=== PATIENT | female | born 1950 | race Caucasian/White ===

== ENCOUNTER 2021-01-10 23:01 | Inpatient (IN) ==
[2021-01-11] MEDS ORDERED: SODIUM CHLORIDE 0.9% 1,000 ML IV PRN ×2 (01:25→02:34)
[2021-01-11 01:54] LABS: INR 1.6; PT Patient Result 16.7 SECS (9.8-11.9)
[2021-01-11 01:55] LABS: Eosinophils # 0.1 10*3/uL (0.0-0.87); Eosinophils % 3.8 % (0.00-10.9); Immature Granulocytes % 0.5 %; Immature Granulocytes Absolute 0.01 #; Lymphocytes # 0.4 10*3/uL (1.4-4.0); Lymphocytes % 20.3 % (21.3-54.2); Mean Corpuscular HGB Conc 32.3 GM/DL (32-36); Mean Corpuscular Volume 93.8 FL (87-102); Neutrophils % 66.4 % (38.7-73.9); Red Blood Count 2.11 MC/CUMM (3.8-5.5); Red Cell Distribution Width 16.6 % (9.3-17.3); White Blood Count 2.1 T/CUMM (4-12)
[2021-01-11 01:59] LABS: Albumin 3.1 G/DL (3.4-5.0); Calcium 8.5 MG/DL (8.5-10.1); Osmolality,Calculated 294.4 MOS/KG (273-304); Potassium 4.1 MMOL/L (3.5-5.1); Total Protein 7.5 G/DL (6.4-8.3)
[2021-01-11 02:01] LABS: Hematocrit 19.8 VOL% (35.7-47.0); Hemoglobin 6.4 GM/DL (12.0-16.0); Platelet Count 31 T/CUMM (130-400)
[2021-01-11] MEDS ORDERED: ALBUTEROL 2.5 MG/3 ML NEB RESP TX PRN (02:28)
[2021-01-11] MEDS ORDERED: ACETAMINOPHEN 325 MG TABLET PO PRN (02:28)
[2021-01-11] MEDS ORDERED: ALBUTEROL/IPRATROPIUM 3 ML NEB RESP TX PRN (02:28)
[2021-01-11] MEDS ORDERED: hydrALAZINE 20 MG/1 ML VIAL IV PRN (02:28)
[2021-01-11] MEDS ORDERED: ONDANSETRON 4 MG/2 ML VIAL IV PRN (02:28)
[2021-01-11] MEDS ORDERED: FUROSEMIDE 40 MG/4 ML VIAL IV ONE (03:10)
[2021-01-11] MEDS: PANTOPRAZOLE 40 MG VIAL IV SCH ×3 (03:32→20:44)
[2021-01-11 04:16] LABS: Folate > 24.0 NG/ML (5.38-24.0); Vitamin B12 513 PG/ML (211-911)
[2021-01-11 04:55] LABS: % Iron Saturation 84.8 % (18-50); Ferritin 389.1 ng/ml (8-252)
[2021-01-11 06:30] LABS: Eosinophils # 0.1 10*3/uL (0.0-0.87); Eosinophils % 2.7 % (0.00-10.9); Hematocrit 18.9 VOL% (35.7-47.0); Immature Granulocytes % 0.5 %; Immature Granulocytes Absolute 0.01 #; Lymphocytes # 0.3 10*3/uL (1.4-4.0); Lymphocytes % 13.6 % (21.3-54.2); Mean Corpuscular HGB Conc 33.3 GM/DL (32-36); Mean Corpuscular Volume 91.3 FL (87-102); Monocytes % 9.1 % (1.7-12.7); Neutrophils % 74.1 % (38.7-73.9); Red Blood Count 2.07 MC/CUMM (3.8-5.5); Red Cell Distribution Width 16.6 % (9.3-17.3); White Blood Count 2.2 T/CUMM (4-12)
[2021-01-11 06:34] LABS: Hemoglobin 6.3 GM/DL (12.0-16.0); Platelet Count 21 T/CUMM (130-400)
[2021-01-11 07:22] LABS: Sedimentation Rate-Westergren 114 MM/HR (0-30)
[2021-01-11 07:43] LABS: Band Neutrophils 5 % (0-10); Eosinophils 3 % (0-10); Lymphocytes 21 % (20-55); Segmented Neutrophils 63 % (50-85)
[2021-01-11 07:44] LABS: Platelet Estimate Decreased
[2021-01-11 07:45] LABS: Anisocytosis 2+; Hypochromasia 2+; Macrocytosis 2+
[2021-01-11 07:46] LABS: Giant Platelets Few; Ovalocytes Few; Schistocytes Few
[2021-01-11 07:47] LABS: Total Cells Counted 100
[2021-01-11 09:05] LABS: Eosinophils # 0.1 10*3/uL (0.0-0.87); Eosinophils % 2.7 % (0.00-10.9); Hematocrit 18.9 VOL% (35.7-47.0); Immature Granulocytes % 0.5 %; Immature Granulocytes Absolute 0.01 #; Lymphocytes # 0.3 10*3/uL (1.4-4.0); Lymphocytes % 13.6 % (21.3-54.2); Mean Corpuscular HGB Conc 33.3 GM/DL (32-36); Mean Corpuscular Volume 91.3 FL (87-102); Monocytes % 9.1 % (1.7-12.7); Neutrophils % 74.1 % (38.7-73.9); Red Blood Count 2.07 MC/CUMM (3.8-5.5); Red Cell Distribution Width 16.6 % (9.3-17.3); White Blood Count 2.2 T/CUMM (4-12)
[2021-01-11 09:06] LABS: Hemoglobin 6.3 GM/DL (12.0-16.0)
[2021-01-11 09:07] LABS: Platelet Count 21 T/CUMM (130-400)
[2021-01-11] MEDS ORDERED: FUROSEMIDE 40 MG/4 ML VIAL ONE (11:27)
[2021-01-11] MEDS: FUROSEMIDE 40 MG/4 ML VIAL IV SCH ×2 (11:30→16:43)
[2021-01-11 12:27] LABS: Amorphous Crystals,Urine Occasional /HPF (Few); Bilirubin,Urine Negative (Negative); Blood, Urine Small mg/dL (Negative); Glucose,Urine (UA) Negative (Negative); Hyaline Casts,Urine 3 /LPF (0-3); Ketones,Urine Negative (Negative); Mucus,Urine Occasional /LPF (Occasional); Nitrite,Urine Negative (Negative); Protein,Urine 100 MG/DL; RBC,Urine 2 /HPF (0-4); Urine Appearance CLEAR (Clear); Urine Color Yellow (Yellow); Urine Urobilinogen < 2.0 EU/DL (0.2-1.0); WBC,Urine 1 /HPF (0-6)
[2021-01-11] MEDS ORDERED: WARFARIN 3 MG TABLET PO ONE (16:37)
[2021-01-11] MEDS ORDERED: MELATONIN 3 MG TABLET PO PRN (18:49)
[2021-01-11] MEDS: PANTOPRAZOLE 40 MG TABLET PO SCH (20:45)
[2021-01-12] MEDS: LEVOTHYROXINE 125 MCG TABLET PO SCH (06:14)
[2021-01-12 06:29] LABS: Basophils % 0.4 % (0.0-0.8); Eosinophils % 0.7 % (0.00-10.9); Hematocrit 26.5 VOL% (35.7-47.0); Hemoglobin 9.1 GM/DL (12.0-16.0); Immature Granulocytes % 0.4 %; Immature Granulocytes Absolute 0.01 #; Lymphocytes # 0.3 10*3/uL (1.4-4.0); Lymphocytes % 10.7 % (21.3-54.2); Mean Corpuscular HGB Conc 34.3 GM/DL (32-36); Mean Corpuscular Volume 88.6 FL (87-102); Monocytes % 6.6 % (1.7-12.7); Neutrophils % 81.2 % (38.7-73.9); Red Blood Count 2.99 MC/CUMM (3.8-5.5); Red Cell Distribution Width 16.2 % (9.3-17.3); White Blood Count 2.7 T/CUMM (4-12)
[2021-01-12 06:32] LABS: Platelet Count 13 T/CUMM (130-400)
[2021-01-12 06:38] LABS: INR 1.4; PT Patient Result 15.1 SECS (9.8-11.9)
[2021-01-12 06:54] LABS: Albumin 3.1 G/DL (3.4-5.0); Bilirubin,Total 1.1 MG/DL (0.2-1.0); Calcium 8.9 MG/DL (8.5-10.1); Osmolality,Calculated 304.1 MOS/KG (273-304); Total Protein 7.7 G/DL (6.4-8.3)
[2021-01-12 07:11] LABS: Eosinophils 2 % (0-10); Lymphocytes 9 % (20-55); Segmented Neutrophils 85 % (50-85); Total Cells Counted 100
[2021-01-12 07:12] LABS: Anisocytosis 1+; Hypochromasia 1+; Macrocytosis 1+; Target Cells Slight
[2021-01-12 07:13] LABS: Platelet Estimate Decreased
[2021-01-12] MEDS ORDERED: FOLIC ACID 0.4 MG TABLET PO SCH (09:00)
[2021-01-12] MEDS: PANTOPRAZOLE 40 MG TABLET PO SCH ×2 (09:09→22:17)
[2021-01-12] MEDS: CHOLECALCIFEROL 1,000 UNIT TABLET PO SCH (09:09)
[2021-01-12] MEDS: allopurinoL 100 MG TABLET PO SCH (09:09)
[2021-01-12] MEDS: methylPREDNISolone SOD SUC 40 MG/1 ML VIAL IV SCH ×2 (09:10→22:17)
[2021-01-12] MEDS: FUROSEMIDE 100 MG/10 ML VIAL IV SCH ×2 (09:19→17:20)
[2021-01-12] MEDS ORDERED: DEXTROSE 5% IV SCH (17:00)
[2021-01-12] MEDS ORDERED: LEUCOVORIN IV SCH (17:00)
[2021-01-12] MEDS: WARFARIN 1 MG TABLET PO SCH (17:58)
[2021-01-12] MEDS: DEXTROSE 5% IV SCH ×2 (17:58→22:17)
[2021-01-12] MEDS: LEUCOVORIN IV SCH ×2 (17:58→22:17)
[2021-01-12] MEDS ORDERED: FOLIC ACID 1 MG TABLET PO SCH (21:00)
[2021-01-12] MEDS ORDERED: FOLIC ACID INJ 1 MG in SYRINGE 1 EACH IV SCH (21:00)
[2021-01-13] MEDS: DEXTROSE 5% IV SCH ×3 (06:22→16:19)
[2021-01-13] MEDS: LEVOTHYROXINE 125 MCG TABLET PO SCH (06:22)
[2021-01-13] MEDS: LEUCOVORIN IV SCH ×3 (06:22→16:19)
[2021-01-13 07:02] LABS: Hemoglobin 7.7 GM/DL (12.0-16.0); Lymphocytes # 0.1 10*3/uL (1.4-4.0); Lymphocytes % 8.3 % (21.3-54.2); Mean Corpuscular HGB Conc 32.1 GM/DL (32-36); Mean Corpuscular Volume 94.1 FL (87-102); Mean Platelet Volume 11.2 FL (9.6-12.0); Monocytes % 2.5 % (1.7-12.7); Neutrophils % 89.2 % (38.7-73.9); Platelet Count 82 T/CUMM (130-400); Red Blood Count 2.55 MC/CUMM (3.8-5.5); Red Cell Distribution Width 15.9 % (9.3-17.3); White Blood Count 1.2 T/CUMM (4-12)
[2021-01-13 07:04] LABS: INR 1.8; PT Patient Result 18.3 SECS (9.8-11.9)
[2021-01-13 07:16] LABS: Albumin 2.9 G/DL (3.4-5.0); Calcium 8.4 MG/DL (8.5-10.1); Osmolality,Calculated 305.2 MOS/KG (273-304); Potassium 3.7 MMOL/L (3.5-5.1); Total Protein 7.1 G/DL (6.4-8.3)
[2021-01-13 07:30] LABS: Hypochromasia 2+; Lymphocytes 8 % (20-55); Microcytosis 1+; Ovalocytes Slight; Platelet Estimate Decreased; Segmented Neutrophils 89 % (50-85); Total Cells Counted 100
[2021-01-13] MEDS ORDERED: FOLIC ACID 1 MG TABLET PO SCH (09:00)
[2021-01-13] MEDS: CHOLECALCIFEROL 1,000 UNIT TABLET PO SCH (09:33)
[2021-01-13] MEDS: PANTOPRAZOLE 40 MG TABLET PO SCH ×2 (09:33→21:30)
[2021-01-13] MEDS: allopurinoL 100 MG TABLET PO SCH (09:33)
[2021-01-13] MEDS: methylPREDNISolone SOD SUC 40 MG/1 ML VIAL IV SCH ×2 (09:34→21:29)
[2021-01-13] MEDS: FUROSEMIDE 100 MG/10 ML VIAL IV SCH (10:13)
[2021-01-13] MEDS: DILTIAZEM CD 120 MG CAPSULE PO SCH (14:27)
[2021-01-13] MEDS ORDERED: FUROSEMIDE 40 MG TABLET PO SCH (16:00)
[2021-01-13] MEDS: WARFARIN 1 MG TABLET PO SCH (17:00)
[2021-01-14] MEDS: LEUCOVORIN IV SCH ×2 (00:39→06:01)
[2021-01-14] MEDS: DEXTROSE 5% IV SCH ×2 (00:39→06:01)
[2021-01-14] MEDS: LEVOTHYROXINE 125 MCG TABLET PO SCH (06:01)
[2021-01-14 06:25] LABS: Hematocrit 23.4 VOL% (35.7-47.0); Hemoglobin 7.4 GM/DL (12.0-16.0); Immature Granulocytes % 0.5 %; Immature Granulocytes Absolute 0.01 #; Lymphocytes # 0.1 10*3/uL (1.4-4.0); Mean Corpuscular HGB Conc 31.6 GM/DL (32-36); Mean Corpuscular Volume 92.9 FL (87-102); Mean Platelet Volume 12.4 FL (9.6-12.0); Neutrophils % 88.5 % (38.7-73.9); Red Blood Count 2.52 MC/CUMM (3.8-5.5); Red Cell Distribution Width 15.4 % (9.3-17.3)
[2021-01-14 06:36] LABS: INR 1.7; PT Patient Result 18.2 SECS (9.8-11.9)
[2021-01-14 06:44] LABS: Calcium 7.7 MG/DL (8.5-10.1); Osmolality,Calculated 313.1 MOS/KG (273-304); Potassium 3.6 MMOL/L (3.5-5.1)
[2021-01-14 06:46] LABS: Platelet Count 36 T/CUMM (130-400)
[2021-01-14 06:48] LABS: Hypochromasia 2+; Microcytosis 1+; Platelet Estimate Decreased
[2021-01-14 08:07] LABS: INR 1.7; PT Patient Result 18.2 SECS (9.8-11.9)
[2021-01-14] MEDS: PANTOPRAZOLE 40 MG TABLET PO SCH (08:46)
[2021-01-14] MEDS: CHOLECALCIFEROL 1,000 UNIT TABLET PO SCH (08:46)
[2021-01-14] MEDS: DILTIAZEM CD 120 MG CAPSULE PO SCH (08:47)
[2021-01-14] MEDS: allopurinoL 100 MG TABLET PO SCH (08:47)
[2021-01-14] MEDS: methylPREDNISolone SOD SUC 40 MG/1 ML VIAL IV SCH (08:48)
[2021-01-14] MEDS ORDERED: SODIUM CHLORIDE 0.9% 1,000 ML IV PRN (08:53)
[2021-01-14] MEDS ORDERED: FUROSEMIDE 40 MG TABLET PO SCH (09:00)
[2021-01-14] MEDS ORDERED: predniSONE 20 MG TABLET PO SCH (09:00)
[2021-01-14 15:16] VITALS: BP 118/56
[2021-01-15 09:30] LABS: Hemoglobin A1 (Alkaline) 97.5 % (96.5-98.5); Hemoglobin A2 (Alkaline) 2.5 % (1.5-3.5)
[2021-01-15 10:40] LABS: Anti SS-A Antibodies < 16 EU/ML
== END 2021-01-14 16:09 | disposition home health service (06) | DRG 545 ==
LOC: SUATTDRO 01-11 00:47 → N.ICU 01-11 00:47 → N.TELEN 01-12 18:18
PROVIDERS: ADMIT Internal Medicine; ATTEND Internal Medicine

== ENCOUNTER 2021-01-18 22:00 | Inpatient (IN) ==
[2021-01-19] MEDS ORDERED: GLUCAGON 1 MG VIAL IM PRN (00:06)
[2021-01-19] MEDS ORDERED: DEXTROSE 50% 25 GM/50 ML VIAL IV PRN (00:06)
[2021-01-19] MEDS ORDERED: MAGNESIUM SULF RIDER 2 GM in PREMIX 1 EACH IV PRN (00:17)
[2021-01-19] MEDS ORDERED: MAGNESIUM SULF RIDER 4 GM in PREMIX 1 EACH IV PRN (00:17)
[2021-01-19] MEDS: ALBUTEROL/IPRATROPIUM 3 ML NEB RESP TX SCH ×4 (00:50→20:02)
[2021-01-19 06:07] LABS: Hematocrit 24.6 VOL% (35.7-47.0); Hemoglobin 8.1 GM/DL (12.0-16.0); Immature Granulocytes % 0.4 %; Immature Granulocytes Absolute 0.01 #; Lymphocytes # 0.4 10*3/uL (1.4-4.0); Lymphocytes % 12.9 % (21.3-54.2); Mean Corpuscular HGB Conc 32.9 GM/DL (32-36); Mean Corpuscular Volume 90.4 FL (87-102); Monocytes % 7.9 % (1.7-12.7); Neutrophils % 78.8 % (38.7-73.9); Red Blood Count 2.72 MC/CUMM (3.8-5.5); Red Cell Distribution Width 15.4 % (9.3-17.3); White Blood Count 2.8 T/CUMM (4-12)
[2021-01-19 06:11] LABS: INR 1.4; PT Patient Result 14.8 SECS (9.8-11.9)
[2021-01-19 06:15] LABS: Platelet Count 13 T/CUMM (130-400)
[2021-01-19 06:26] LABS: Hypochromasia 1+
[2021-01-19 06:27] LABS: Albumin 2.9 G/DL (3.4-5.0); Bilirubin,Total 0.9 MG/DL (0.2-1.0); Calcium 8.7 MG/DL (8.5-10.1); Microcytosis 1+; Osmolality,Calculated 329.8 MOS/KG (273-304); Ovalocytes Slight; Platelet Estimate Decreased; Potassium 4.2 MMOL/L (3.5-5.1); Total Protein 6.6 G/DL (5.0-7.5)
[2021-01-19] MEDS ORDERED: WARFARIN 5 MG TABLET PO ONE (07:22)
[2021-01-19] MEDS ORDERED: SODIUM CHLORIDE 0.9% 1,000 ML IV PRN ×2 (08:58→19:42)
[2021-01-19] MEDS: PANTOPRAZOLE 40 MG TABLET PO SCH (09:17)
[2021-01-19] MEDS: FUROSEMIDE 40 MG/4 ML VIAL IV SCH ×2 (09:17→16:15)
[2021-01-19] MEDS: methylPREDNISolone SOD SUC 40 MG/1 ML VIAL IV SCH ×2 (11:16→18:17)
[2021-01-20] MEDS: ALBUTEROL/IPRATROPIUM 3 ML NEB RESP TX SCH ×5 (00:33→20:04)
[2021-01-20] MEDS: methylPREDNISolone SOD SUC 40 MG/1 ML VIAL IV SCH ×3 (02:49→18:11)
[2021-01-20 05:57] LABS: Hematocrit 28.2 VOL% (35.7-47.0); Lymphocytes # 0.1 10*3/uL (1.4-4.0); Mean Corpuscular HGB Conc 31.9 GM/DL (32-36); Mean Corpuscular Volume 90.1 FL (87-102); Mean Platelet Volume 11.6 FL (9.6-12.0); Monocytes % 0.7 % (1.7-12.7); Neutrophils % 93.3 % (38.7-73.9); Platelet Count 58 T/CUMM (130-400); Red Blood Count 3.13 MC/CUMM (3.8-5.5); Red Cell Distribution Width 16.8 % (9.3-17.3); White Blood Count 1.5 T/CUMM (4-12)
[2021-01-20 06:04] LABS: INR 1.6; PT Patient Result 16.7 SECS (9.8-11.9)
[2021-01-20 06:20] LABS: Albumin 2.9 G/DL (3.4-5.0); Bilirubin,Total 1.1 MG/DL (0.2-1.0); Calcium 8.4 MG/DL (8.5-10.1); Osmolality,Calculated 326.5 MOS/KG (273-304); Potassium 4.1 MMOL/L (3.5-5.1); Total Protein 6.5 G/DL (5.0-7.5)
[2021-01-20 06:33] LABS: Lymphocytes 2 % (20-55); Segmented Neutrophils 98 % (50-85); Total Cells Counted 100
[2021-01-20 06:34] LABS: Hypochromasia 1+; Microcytosis 1+; Ovalocytes Slight
[2021-01-20 06:35] LABS: Platelet Estimate Decreased
[2021-01-20] MEDS ORDERED: WARFARIN 5 MG TABLET PO ONE (07:02)
[2021-01-20] MEDS ORDERED: HEPARIN 5,000 UNIT/1 ML VIAL ONE (07:43)
[2021-01-20] MEDS: carvediloL 6.25 MG TABLET PO SCH ×2 (09:22→22:09)
[2021-01-20] MEDS: FUROSEMIDE 40 MG/4 ML VIAL IV SCH (09:22)
[2021-01-20] MEDS: hydrALAZINE 25 MG TABLET PO SCH ×2 (09:22→22:09)
[2021-01-20] MEDS: PANTOPRAZOLE 40 MG TABLET PO SCH (09:22)
[2021-01-21] MEDS: ALBUTEROL/IPRATROPIUM 3 ML NEB RESP TX SCH ×4 (01:19→19:54)
[2021-01-21] MEDS: methylPREDNISolone SOD SUC 40 MG/1 ML VIAL IV SCH ×2 (02:24→09:34)
[2021-01-21 06:02] LABS: Hematocrit 27.7 VOL% (35.7-47.0); Hemoglobin 8.8 GM/DL (12.0-16.0); Immature Granulocytes % 0.8 %; Immature Granulocytes Absolute 0.02 #; Lymphocytes # 0.1 10*3/uL (1.4-4.0); Lymphocytes % 3.4 % (21.3-54.2); Mean Corpuscular HGB Conc 31.8 GM/DL (32-36); Mean Corpuscular Volume 90.5 FL (87-102); Mean Platelet Volume 12.9 FL (9.6-12.0); Monocytes % 1.7 % (1.7-12.7); Neutrophils % 94.1 % (38.7-73.9); Red Blood Count 3.06 MC/CUMM (3.8-5.5); Red Cell Distribution Width 16.4 % (9.3-17.3)
[2021-01-21 06:10] LABS: Platelet Count 40 T/CUMM (130-400); White Blood Count 2.4 T/CUMM (4-12)
[2021-01-21 06:24] LABS: Hypochromasia 1+; Lymphocytes 4 % (20-55); Microcytosis 1+; Platelet Estimate Decreased; Segmented Neutrophils 91 % (50-85); Total Cells Counted 100
[2021-01-21 09:20] LABS: Calcium 8.5 MG/DL (8.5-10.1); Potassium 3.9 MMOL/L (3.5-5.1)
[2021-01-21] MEDS: hydrALAZINE 25 MG TABLET PO SCH ×2 (09:34→21:46)
[2021-01-21] MEDS: PANTOPRAZOLE 40 MG TABLET PO SCH (09:34)
[2021-01-21] MEDS: carvediloL 6.25 MG TABLET PO SCH ×2 (09:34→21:46)
[2021-01-21] MEDS: FUROSEMIDE 40 MG/4 ML VIAL IV SCH (09:35)
[2021-01-21 10:21] LABS: INR 1.8; PT Patient Result 18.4 SECS (9.8-11.9)
[2021-01-21] MEDS ORDERED: WARFARIN 2 MG TABLET PO ONE (13:18)
[2021-01-21] MEDS: HYDROCORTISONE 25 MG SUPP RECTAL SCH ×2 (14:34→21:46)
[2021-01-21] MEDS: VANCOMYCIN 50 MG/ML 60 ML/BOTTLE PO SCH (19:01)
[2021-01-22] MEDS: VANCOMYCIN 50 MG/ML 60 ML/BOTTLE PO SCH ×4 (00:34→18:22)
[2021-01-22] MEDS: ALBUTEROL/IPRATROPIUM 3 ML NEB RESP TX SCH ×4 (02:25→19:59)
[2021-01-22 06:13] LABS: Hemoglobin 9.1 GM/DL (12.0-16.0); Immature Granulocytes % 0.8 %; Immature Granulocytes Absolute 0.02 #; Lymphocytes # 0.1 10*3/uL (1.4-4.0); Mean Corpuscular HGB Conc 31.4 GM/DL (32-36); Mean Corpuscular Volume 92.4 FL (87-102); Mean Platelet Volume 12.7 FL (9.6-12.0); Monocytes % 6.2 % (1.7-12.7); NRBC # 0.02 10*3/uL; Platelet Count 44 T/CUMM (130-400); Red Blood Count 3.14 MC/CUMM (3.8-5.5); Red Cell Distribution Width 16.3 % (9.3-17.3); White Blood Count 2.6 T/CUMM (4-12)
[2021-01-22 06:24] LABS: INR 1.7; PT Patient Result 17.5 SECS (9.8-11.9)
[2021-01-22 06:33] LABS: Osmolality,Calculated 344.7 MOS/KG (273-304); Potassium 3.9 MMOL/L (3.5-5.1)
[2021-01-22 06:40] LABS: Lymphocytes 5 % (20-55); Segmented Neutrophils 91 % (50-85); Total Cells Counted 100
[2021-01-22 06:41] LABS: Hypochromasia 1+; Microcytosis 1+; Ovalocytes Slight
[2021-01-22 06:42] LABS: Platelet Estimate Decreased
[2021-01-22] MEDS: predniSONE 20 MG TABLET PO SCH (09:41)
[2021-01-22] MEDS: hydrALAZINE 25 MG TABLET PO SCH ×2 (09:41→21:22)
[2021-01-22] MEDS: carvediloL 6.25 MG TABLET PO SCH ×2 (09:41→21:22)
[2021-01-22] MEDS: FUROSEMIDE 40 MG/4 ML VIAL IV SCH (09:41)
[2021-01-22] MEDS: PANTOPRAZOLE 40 MG TABLET PO SCH (09:41)
[2021-01-22] MEDS: HYDROCORTISONE 25 MG SUPP RECTAL SCH ×2 (09:42→21:22)
[2021-01-22] MEDS: ONDANSETRON 4 MG/2 ML VIAL IV PRN (10:18)
[2021-01-22] MEDS ORDERED: ALBUMIN 25% 25 GM in PREMIX 1 EACH IV ONE ×2 (15:07→17:00)
[2021-01-22] MEDS: ZALEPLON 5 MG CAPSULE PO PRN (23:18)
[2021-01-23] MEDS: VANCOMYCIN 50 MG/ML 60 ML/BOTTLE PO SCH ×4 (00:30→18:18)
[2021-01-23] MEDS: ALBUTEROL/IPRATROPIUM 3 ML NEB RESP TX SCH ×4 (01:00→19:42)
[2021-01-23 06:51] LABS: Hematocrit 28.2 VOL% (35.7-47.0); Hemoglobin 8.9 GM/DL (12.0-16.0); Immature Granulocytes Absolute 0.03 #; Lymphocytes # 0.2 10*3/uL (1.4-4.0); Lymphocytes % 6.5 % (21.3-54.2); Mean Corpuscular HGB Conc 31.6 GM/DL (32-36); Mean Corpuscular Volume 92.5 FL (87-102); Monocytes % 5.8 % (1.7-12.7); Neutrophils % 86.7 % (38.7-73.9); Red Blood Count 3.05 MC/CUMM (3.8-5.5); Red Cell Distribution Width 16.2 % (9.3-17.3); White Blood Count 2.9 T/CUMM (4-12)
[2021-01-23 06:53] LABS: Platelet Count 23 T/CUMM (130-400)
[2021-01-23 07:05] LABS: INR 1.6; PT Patient Result 17.2 SECS (9.8-11.9)
[2021-01-23 07:17] LABS: Calcium 7.7 MG/DL (8.5-10.1); Osmolality,Calculated 345.1 MOS/KG (273-304); Potassium 4.4 MMOL/L (3.5-5.1)
[2021-01-23] MEDS ORDERED: WARFARIN 5 MG TABLET PO ONE (07:42)
[2021-01-23] MEDS: hydrALAZINE 25 MG TABLET PO SCH ×2 (08:26→21:32)
[2021-01-23] MEDS: predniSONE 20 MG TABLET PO SCH (08:26)
[2021-01-23] MEDS: HYDROCORTISONE 25 MG SUPP RECTAL SCH ×2 (08:26→21:32)
[2021-01-23] MEDS: carvediloL 6.25 MG TABLET PO SCH ×2 (08:26→21:32)
[2021-01-23] MEDS: PANTOPRAZOLE 40 MG TABLET PO SCH (08:26)
[2021-01-23] MEDS: SODIUM CHLORIDE 0.9% 1,000 ML IV SCH (12:00)
[2021-01-23] MEDS: ALUMINUM/MAGNES/SIMETH MAX STR 30 ML UDCUP PO PRN ×2 (12:00→18:18)
[2021-01-23] MEDS: methylPREDNISolone SOD SUC 40 MG/1 ML VIAL IV SCH ×2 (14:52→21:35)
[2021-01-24] MEDS: VANCOMYCIN 50 MG/ML 60 ML/BOTTLE PO SCH ×4 (00:20→18:10)
[2021-01-24] MEDS: SODIUM CHLORIDE 0.9% 1,000 ML IV SCH ×3 (01:06→21:59)
[2021-01-24] MEDS: ALBUTEROL/IPRATROPIUM 3 ML NEB RESP TX SCH ×4 (02:05→19:37)
[2021-01-24 05:40] LABS: Hematocrit 27.5 VOL% (35.7-47.0); Hemoglobin 8.5 GM/DL (12.0-16.0); Immature Granulocytes % 0.6 %; Immature Granulocytes Absolute 0.02 #; Lymphocytes # 0.1 10*3/uL (1.4-4.0); Lymphocytes % 1.7 % (21.3-54.2); Mean Corpuscular HGB Conc 30.9 GM/DL (32-36); Mean Corpuscular Volume 93.5 FL (87-102); Monocytes % 1.4 % (1.7-12.7); NRBC # 0.02 10*3/uL; Neutrophils % 96.3 % (38.7-73.9); Platelet Count 73 T/CUMM (130-400); Red Blood Count 2.94 MC/CUMM (3.8-5.5); Red Cell Distribution Width 16.1 % (9.3-17.3); White Blood Count 3.5 T/CUMM (4-12)
[2021-01-24] MEDS: methylPREDNISolone SOD SUC 40 MG/1 ML VIAL IV SCH ×3 (05:43→21:59)
[2021-01-24 05:47] LABS: INR 1.6; PT Patient Result 16.3 SECS (9.8-11.9)
[2021-01-24 05:59] LABS: Calcium 7.3 MG/DL (8.5-10.1); Osmolality,Calculated 344.1 MOS/KG (273-304)
[2021-01-24 06:32] LABS: Band Neutrophils 2 % (0-10); Nucleated Red Blood Cells 1 (0-5); Segmented Neutrophils 96 % (50-85); Total Cells Counted 100
[2021-01-24 06:33] LABS: Anisocytosis 2+; Burr Cells Few; Helmet Cells Few; Macrocytosis 1+; Platelet Estimate Decreased
[2021-01-24] MEDS: PANTOPRAZOLE 40 MG TABLET PO SCH (08:19)
[2021-01-24] MEDS ORDERED: LACTULOSE 20 GM/30 ML UDCUP PO PRN (08:35)
[2021-01-24] MEDS: carvediloL 6.25 MG TABLET PO SCH ×2 (08:39→21:59)
[2021-01-24] MEDS: hydrALAZINE 25 MG TABLET PO SCH ×2 (08:39→21:59)
[2021-01-24] MEDS ORDERED: WARFARIN 2 MG TABLET PO ONE (09:13)
[2021-01-24] MEDS: HYDROCORTISONE 25 MG SUPP RECTAL SCH ×2 (10:00→21:59)
[2021-01-25] MEDS: ALBUTEROL/IPRATROPIUM 3 ML NEB RESP TX SCH ×4 (00:23→19:23)
[2021-01-25] MEDS: VANCOMYCIN 50 MG/ML 60 ML/BOTTLE PO SCH ×4 (01:07→18:30)
[2021-01-25 05:26] LABS: Hematocrit 26.4 VOL% (35.7-47.0); Hemoglobin 8.5 GM/DL (12.0-16.0); Immature Granulocytes % 0.6 %; Immature Granulocytes Absolute 0.02 #; Lymphocytes # 0.1 10*3/uL (1.4-4.0); Lymphocytes % 1.6 % (21.3-54.2); Mean Corpuscular HGB Conc 32.2 GM/DL (32-36); Mean Corpuscular Volume 91.7 FL (87-102); Mean Platelet Volume 11.6 FL (9.6-12.0); Monocytes % 1.9 % (1.7-12.7); Neutrophils % 95.9 % (38.7-73.9); Platelet Count 50 T/CUMM (130-400); Red Blood Count 2.88 MC/CUMM (3.8-5.5); Red Cell Distribution Width 16.2 % (9.3-17.3); White Blood Count 3.1 T/CUMM (4-12)
[2021-01-25 05:30] LABS: INR 1.6; PT Patient Result 17.2 SECS (9.8-11.9)
[2021-01-25 05:45] LABS: Albumin 2.7 G/DL (3.4-5.0); Bilirubin,Total 1.3 MG/DL (0.2-1.0); Calcium 7.6 MG/DL (8.5-10.1); Osmolality,Calculated 348.1 MOS/KG (273-304); Potassium 5.1 MMOL/L (3.5-5.1); Total Protein 5.6 G/DL (5.0-7.5)
[2021-01-25] MEDS: methylPREDNISolone SOD SUC 40 MG/1 ML VIAL IV SCH ×3 (06:33→21:47)
[2021-01-25 07:14] LABS: Anisocytosis 2+; Band Neutrophils 2 % (0-10); Burr Cells Few; Lymphocytes 2 % (20-55); Platelet Estimate Decreased; Segmented Neutrophils 94 % (50-85); Total Cells Counted 100
[2021-01-25 07:15] LABS: Ovalocytes Few
[2021-01-25] MEDS: SODIUM CHLORIDE 0.9% 1,000 ML IV SCH (08:05)
[2021-01-25] MEDS: PANTOPRAZOLE 40 MG TABLET PO SCH (08:19)
[2021-01-25] MEDS: carvediloL 6.25 MG TABLET PO SCH ×2 (08:19→21:45)
[2021-01-25] MEDS: hydrALAZINE 25 MG TABLET PO SCH ×2 (08:19→21:45)
[2021-01-25] MEDS: HYDROCORTISONE 25 MG SUPP RECTAL SCH ×2 (08:19→21:45)
[2021-01-25] MEDS: SODIUM CHLORIDE 23.4% CONC INJ 38.5 MEQ, SODIUM BICARB INJ 100 MEQ in STERILE WATER INJ... IV SCH (11:56)
[2021-01-25] MEDS ORDERED: WARFARIN 2 MG TABLET PO ONE (18:00)
[2021-01-25] MEDS: ZALEPLON 5 MG CAPSULE PO PRN (23:05)
[2021-01-26] MEDS: VANCOMYCIN 50 MG/ML 60 ML/BOTTLE PO SCH ×4 (00:20→18:56)
[2021-01-26] MEDS: ALBUTEROL/IPRATROPIUM 3 ML NEB RESP TX SCH ×4 (01:12→19:12)
[2021-01-26] MEDS: SODIUM CHLORIDE 23.4% CONC INJ 38.5 MEQ, SODIUM BICARB INJ 100 MEQ in STERILE WATER INJ... IV SCH ×2 (03:08→17:29)
[2021-01-26 04:44] LABS: Hematocrit 25.8 VOL% (35.7-47.0); Hemoglobin 8.2 GM/DL (12.0-16.0); Immature Granulocytes % 1.1 %; Immature Granulocytes Absolute 0.04 #; Lymphocytes # 0.1 10*3/uL (1.4-4.0); Lymphocytes % 1.4 % (21.3-54.2); Mean Corpuscular HGB Conc 31.8 GM/DL (32-36); Mean Corpuscular Volume 91.8 FL (87-102); Mean Platelet Volume 11.8 FL (9.6-12.0); Monocytes % 1.4 % (1.7-12.7); Neutrophils % 96.1 % (38.7-73.9); Platelet Count 40 T/CUMM (130-400); Red Blood Count 2.81 MC/CUMM (3.8-5.5); Red Cell Distribution Width 16.1 % (9.3-17.3); White Blood Count 3.6 T/CUMM (4-12)
[2021-01-26 05:15] LABS: Hypochromasia 1+; Lymphocytes 3 % (20-55); Microcytosis 1+; Segmented Neutrophils 96 % (50-85); Total Cells Counted 100
[2021-01-26 05:16] LABS: Ovalocytes Slight; Platelet Estimate Decreased
[2021-01-26] MEDS: methylPREDNISolone SOD SUC 40 MG/1 ML VIAL IV SCH ×3 (05:34→21:43)
[2021-01-26 05:38] LABS: INR 1.6
[2021-01-26 05:58] LABS: Albumin 2.8 G/DL (3.4-5.0); Bilirubin,Total 0.9 MG/DL (0.2-1.0); Calcium 7.3 MG/DL (8.5-10.1); Osmolality,Calculated 344.2 MOS/KG (273-304); Total Protein 5.3 G/DL (5.0-7.5)
[2021-01-26] MEDS: PANTOPRAZOLE 40 MG TABLET PO SCH (10:36)
[2021-01-26] MEDS: carvediloL 12.5 MG TABLET PO SCH ×2 (10:36→21:43)
[2021-01-26] MEDS: hydrALAZINE 25 MG TABLET PO SCH (10:44)
[2021-01-26] MEDS: carvediloL 6.25 MG TABLET PO SCH (10:45)
[2021-01-26] MEDS ORDERED: HEPARIN DRIP 25,000 UNITS/500 ML PREMIX IV SCH (11:30)
[2021-01-26 11:58] LABS: INR 1.4; PT Patient Result 15.2 SECS (9.8-11.9); Partial Thromboplastin Time 35.8 SECS (23.9-33.8)
[2021-01-26] MEDS: HYDROCORTISONE 25 MG SUPP RECTAL SCH (16:40)
[2021-01-27] MEDS: VANCOMYCIN 50 MG/ML 60 ML/BOTTLE PO SCH ×4 (00:05→18:44)
[2021-01-27] MEDS: ACETAMINOPHEN 325 MG TABLET PO PRN ×2 (00:05→18:44)
[2021-01-27] MEDS: ALBUTEROL/IPRATROPIUM 3 ML NEB RESP TX SCH ×4 (00:34→19:07)
[2021-01-27] MEDS: HYDROCORTISONE 25 MG SUPP RECTAL SCH ×3 (01:00→21:23)
[2021-01-27] MEDS: methylPREDNISolone SOD SUC 40 MG/1 ML VIAL IV SCH ×2 (05:29→14:40)
[2021-01-27 06:22] LABS: Hematocrit 24.2 VOL% (35.7-47.0); Hemoglobin 7.7 GM/DL (12.0-16.0); Immature Granulocytes % 1.1 %; Immature Granulocytes Absolute 0.04 #; Lymphocytes % 1.1 % (21.3-54.2); Mean Corpuscular HGB Conc 31.8 GM/DL (32-36); NRBC # 0.02 10*3/uL; Neutrophils % 93.8 % (38.7-73.9); Red Blood Count 2.66 MC/CUMM (3.8-5.5); White Blood Count 3.5 T/CUMM (4-12)
[2021-01-27 06:28] LABS: Platelet Count 25 T/CUMM (130-400)
[2021-01-27 06:50] LABS: Hypochromasia 1+; Lymphocytes 1 % (20-55); Nucleated Red Blood Cells 1 (0-5); Segmented Neutrophils 95 % (50-85); Total Cells Counted 100
[2021-01-27 06:51] LABS: Albumin 2.5 G/DL (3.4-5.0); Bilirubin,Total 0.8 MG/DL (0.2-1.0); Microcytosis 1+; Ovalocytes Slight; Platelet Estimate Decreased; Potassium 4.7 MMOL/L (3.5-5.1); Total Protein 5.1 G/DL (5.0-7.5)
[2021-01-27] MEDS ORDERED: LEVOTHYROXINE 88 MCG TABLET PO SCH (09:00)
[2021-01-27] MEDS: PANTOPRAZOLE 40 MG TABLET PO SCH (09:34)
[2021-01-27] MEDS: LEVOTHYROXINE 100 MCG TABLET PO SCH (09:34)
[2021-01-27] MEDS: carvediloL 12.5 MG TABLET PO SCH ×2 (09:34→21:23)
[2021-01-27] MEDS: SODIUM CHLORIDE 23.4% CONC INJ 38.5 MEQ, SODIUM BICARB INJ 100 MEQ in STERILE WATER INJ... IV SCH (09:34)
[2021-01-27 09:50] LABS: INR 1.4; PT Patient Result 14.4 SECS (9.8-11.9)
[2021-01-27] MEDS ORDERED: SODIUM CHLORIDE 0.9% 1,000 ML IV PRN (16:14)
[2021-01-27] MEDS ORDERED: NITROGLYCERIN SL 0.4 MG TABLET SL PRN (17:37)
[2021-01-27] MEDS ORDERED: ALUM/MAG/SIMETH/LIDO VISC 1:1 30 ML BOTTLE PO ONE (17:37)
[2021-01-28] MEDS: VANCOMYCIN 50 MG/ML 60 ML/BOTTLE PO SCH ×4 (00:12→17:32)
[2021-01-28] MEDS: ALBUTEROL/IPRATROPIUM 3 ML NEB RESP TX SCH ×4 (01:00→21:19)
[2021-01-28] MEDS ORDERED: CLINDAMYCIN INJ 900 MG in PREMIX 1 EACH IV ONE (05:49)
[2021-01-28] MEDS: ACETAMINOPHEN 325 MG TABLET PO PRN ×2 (05:55→16:51)
[2021-01-28 06:02] LABS: Hematocrit 23.6 VOL% (35.7-47.0); Immature Granulocytes % 1.4 %; Immature Granulocytes Absolute 0.03 #; Mean Corpuscular HGB Conc 33.9 GM/DL (32-36); Mean Corpuscular Volume 87.4 FL (87-102); Monocytes % 1.9 % (1.7-12.7); NRBC # 0.02 10*3/uL; Neutrophils % 96.7 % (38.7-73.9); Red Cell Distribution Width 16.2 % (9.3-17.3); White Blood Count 2.1 T/CUMM (4-12)
[2021-01-28 06:03] LABS: INR 1.4; PT Patient Result 15.1 SECS (9.8-11.9); Platelet Count 15 T/CUMM (130-400)
[2021-01-28] MEDS ORDERED: HEPARIN 5,000 UNIT/1 ML VIAL ONE (06:13)
[2021-01-28] MEDS ORDERED: LIDOCAINE 1%/EPI INJ 20 ML VIAL ONE (06:13)
[2021-01-28] MEDS ORDERED: BUPIVACAINE MPF 0.25% 30 ML VIAL ONE (06:13)
[2021-01-28] MEDS ORDERED: LIDOCAINE 1% 20 ML VIAL ONE (06:23)
[2021-01-28 06:26] LABS: Band Neutrophils 1 % (0-10); Hypochromasia 1+; Microcytosis 1+; Platelet Estimate Decreased; Segmented Neutrophils 96 % (50-85); Total Cells Counted 100
[2021-01-28] MEDS ORDERED: fentaNYL 100 MCG/2 ML VIAL ONE (06:27)
[2021-01-28] MEDS ORDERED: LIDOCAINE 2% 5 ML VIAL ONE (06:27)
[2021-01-28] MEDS ORDERED: propofoL 200 MG/20 ML VIAL IV ONE (06:27)
[2021-01-28] MEDS ORDERED: MIDAZOLAM 2 MG/2 ML VIAL ONE (06:27)
[2021-01-28 06:33] LABS: Albumin 2.3 G/DL (3.4-5.0); Bilirubin,Total 1.1 MG/DL (0.2-1.0); Calcium 7.2 MG/DL (8.5-10.1); Potassium 4.5 MMOL/L (3.5-5.1); Total Protein 4.9 G/DL (5.0-7.5)
[2021-01-28 07:06] LABS: Troponin I 0.606 NG/ML (0.00-0.045)
[2021-01-28] MEDS ORDERED: methylPREDNISolone SOD SUC 40 MG/1 ML VIAL IV SCH (09:00)
[2021-01-28] MEDS: LEVOTHYROXINE 100 MCG TABLET PO SCH (09:23)
[2021-01-28] MEDS: PANTOPRAZOLE 40 MG TABLET PO SCH (09:23)
[2021-01-28] MEDS: carvediloL 12.5 MG TABLET PO SCH (09:23)
[2021-01-28] MEDS: HYDROCORTISONE 25 MG SUPP RECTAL SCH (09:24)
[2021-01-28 09:38] LABS: Hepatitis B Core IgM Quant < 0.05 Index; Hepatitis B Surface Ag Quant < 0.10 Index; Hepatitis B Surface Ag Result Non-Reactive (NonReactive); Hepatitis C Virus Ab Quant 0.14 Index; Hepatitis C Virus Ab Result Non-Reactive (NonReactive)
[2021-01-28] MEDS ORDERED: ALBUMIN 25% 25 GM in PREMIX 1 EACH IV ONE (13:00)
[2021-01-28] MEDS: ONDANSETRON 4 MG/2 ML VIAL IV PRN (16:51)
[2021-01-28] MEDS ORDERED: ALBUTEROL/IPRATROPIUM 3 ML NEB RESP TX ONE (17:46)
[2021-01-28] MEDS ORDERED: SODIUM BICARBONATE 50 MEQ/50 ML VIAL IV ONE (18:23)
[2021-01-28] MEDS ORDERED: MORPHINE 4 MG/1 ML VIAL IV PRN ×2 (19:21→19:26)
[2021-01-28] MEDS ORDERED: LORazepam 2 MG/1 ML VIAL IV PRN ×2 (19:23→19:27)
[2021-01-28] MEDS ORDERED: MORPHINE 4 MG/1 ML VIAL ONE (19:25)
[2021-01-28 23:04] VITALS: BP 70/38
== END 2021-01-28 20:14 | disposition expired | DRG 808 ==
LOC: N.TELEN → OBSVTOIN 23:15 → SUATTDRO 23:15
PROVIDERS: ADMIT Internal Medicine; ATTEND Internal Medicine